=== PATIENT | male | born 1995 | race Caucasian/White ===

== ENCOUNTER 2016-10-18 16:12 | Emergency (ER) | payer BC ==
[2016-10-18] MEDS ORDERED: CEFTRIAXONE INJ 250 MG VIAL IM ONE (16:47)
[2016-10-18] MEDS ORDERED: LIDOCAINE 1% INJ-PF (10 MG/ML) 30 ML SDV INFIL ONE (16:47)
[2016-10-18] MEDS ORDERED: AZITHROMYCIN 250 MG TABLET PO ONE (16:47)
--- NOTE | 2016-10-18 17:22 | ER Document Report ---
HPI - HPI Patient complains to provider of: penis swelling and discharge Onset: Other - 1 week Onset/Duration: Gradual Quality of pain: Burning Pain Level: 4 Context: 21-year-old male complaining of a yellow penis discharge for a week with dysuria. He is also complaining of distal penis being swollen. His female partner has discharge but does not want to check in to be evaluated. Associated Symptoms: None Exacerbated by: Other Relieved by: Denies - Urination Similar symptoms previously: No Recently seen / treated by doctor: No - ROS ROS below otherwise negative: Yes Systems Reviewed and Negative: Yes All other systems reviewed and negative - CARDIOVASCULAR Cardiovascular: DENIES: Chest pain - DERM Skin Color: Normal, [place] Past Medical History - General Information source: Patient - Social History Smoking Status: Never Smoker Frequency of alcohol use: None Drug Abuse: None Lives with: Family Family History: Reviewed & Not Pertinent - Medical History Medical History: Negative Renal/ Medical History: Denies: Hx Peritoneal Dialysis Surgical Hx: Negative - Immunizations Hx Diphtheria, Pertussis, Tetanus Vaccination: Yes Vertical Provider Document - CONSTITUTIONAL Agree With Documented VS: Yes Exam Limitations: No Limitations - INFECTION CONTROL TRAVEL OUTSIDE OF THE [place] IN LAST 30 DAYS: No - HEENT HEENT: Normocephalic - NECK Neck: Supple - RESPIRATORY Respiratory: Breath Sounds Normal, No Respiratory Distress O2 Sat by Pulse Oximetry: 99 - CARDIOVASCULAR Cardiovascular: Regular Rate, Regular Rhythm - REPRODUCTIVE Male Genitalia: Abnormal Inspection Notes: Mild swelling distal penis there is no tourniquet thread of any kind, patient is circumcised, yellow urethral discharge, no testicular or scrotal swelling. - BACK Back: Normal Inspection - MUSCULOSKELETAL/EXTREMETIES Musculoskeletal/Extremeties: [place] - NEURO Level of Consciousness: Awake, Alert, Appropriate Course - Re-evaluation Re-evalutation: 10/18/16 17:21 pt was OK with female partner in room for exam, and RN present for exam. 10/18/16 19:20 She called back and he is positive for gonorrhea and Chlamydia I explained that his sexual partner needs to be treated and they understand that. - Vital Signs Vital signs: Temp Pulse Resp BP Pulse Ox 98.6 F 80 14 126/85 H 99 10/18/16 16:13 10/18/16 16:13 10/18/16 16:13 10/18/16 16:13 10/18/16 16:13 Discharge - Discharge Clinical Impression: swelling distal penile shaft, urethritis Condition: Good Disposition: HOME, SELF-CARE Instructions: Urethritis ([facility]), Rocephin ([facility]), Azithromycin ([facility]) Additional Instructions: call me in 2 hours for the std culture results [phone] see the urologist if you continue to have swelling no intercourse until partner is treated too, then wait 1 week. to er if worse Please complete the patient satisfaction survey if you get one, and return it.. If you do not receive a survey, then you can go to the [facility] website, [email or web address] and place your comments about your very good care. Thank you very much. It was a pleasure being your medical provider today. Referrals: KATHERINE DUNN MD [[facility]ELSON] - Follow up as needed
[2016-10-18 17:40] VITALS: BP 112/82
[2016-10-18 18:33] LABS: CHLAM PCR DETECTED (NOT DETECT)
== END 2016-10-18 17:40 | disposition home or self-care (01) ==
LOC: ER 16:12
DX: N34.2 Other urethritis (principal); A54.09 Other gonococcal infection of lower genitourinary tract; A74.9 Chlamydial infection, unspecified; R22.9 Localized swelling, mass and lump, unspecified
CPT/HCPCS: 99283; 96372; 87491; 87591; J3490; J0696